=== PATIENT | male | born 1990 | race Caucasian/White ===

== ENCOUNTER 2020-10-28 02:37 | Emergency (ER) | payer OTHER ==
[~2020-10-28] VITALS: Ht 177.8 cm; Wt 88.5 kg
--- NOTE | 2020-10-28 02:40 | NUR ---
PATIENT BIBSELF C/O TOOTH PAIN. PATIENT IS A/OX 4, STABLE ON ROOM AIR, V/S WNL. PATIENT IS STABLE ON ROOM AIR. WILL CONTINUE TO MONINTOR.
[2020-10-28] MEDS ORDERED: KETO10TA2 PO (02:48)
[2020-10-28] MEDS ORDERED: KETOROLAC TROMETHAMINE INJ 60 MG/2 ML VIAL IM ONE ×2 (02:49→03:00)
--- NOTE | 2020-10-28 03:04 | NUR ---
Patient discharged to home in stable condition. Written and verbal after care instructions given. Patient verbalizes understanding of instruction. ambulatory with a steady gait
[2020-10-28 03:05] VITALS: BP 138/89
== END 2020-10-28 03:05 | disposition home or self-care (01) ==
LOC: ER 02:43
DX: K08.89 Other specified disorders of teeth and supporting structures (principal)
CPT/HCPCS: 96372; 99283; J1885